=== PATIENT | female | born 1950 | race Caucasian/White ===

== ENCOUNTER → 2020-12-24 | Outpatient (CLI) | payer OTHER ==
[~2020-12-24] MED LIST: NOHOMEMEDICATIONS; PERCOCET 5-3251 EACH PO
== END ==
LOC: SJCVC 13:09
PROVIDERS: ATTEND Internal Medicine Cardiovascular Disease
DX: R94.31 Abnormal electrocardiogram [ECG] [EKG] (principal); R01.1 Cardiac murmur, unspecified; E78.00 Pure hypercholesterolemia, unspecified; E78.5 Hyperlipidemia, unspecified; Z86.79 Personal history of other diseases of the circulatory system; Z79.899 Other long term (current) drug therapy; Z85.3 Personal history of malignant neoplasm of breast; Z72.89 Other problems related to lifestyle

== ENCOUNTER → 2021-01-22 | Outpatient (CLI) | payer OTHER | LOC: SJCVCIMAG 07:27 | PROVIDERS: ATTEND Internal Medicine Cardiovascular Disease | DX: I08.1 Rheumatic disorders of both mitral and tricuspid valves (principal); I25.9 Chronic ischemic heart disease, unspecified; R94.31 Abnormal electrocardiogram [ECG] [EKG]; E78.00 Pure hypercholesterolemia, unspecified; E78.5 Hyperlipidemia, unspecified; I49.3 Ventricular premature depolarization; Z72.89 Other problems related to lifestyle; Z79.899 Other long term (current) drug therapy ==

== ENCOUNTER → 2021-01-29 | Outpatient (CLI) | payer OTHER ==
[~2021-01-29] VITALS: Ht 170.2 cm; Wt 87.5 kg
[~2021-01-29] MED LIST changes: +CALCIUM GLUCON500 GM PO; +CHILDREN'S ASPI81 M1 PO; +FEMARA2.5 MG PO; +LORATIDINE 10 M10 M1 PO; +VITAMIN B-121000 MC2 PO; +VITAMIN D310 MC2 PO
[2021-01-29 07:53] VITALS: BP 185/111
--- NOTE | 2021-01-29 09:55 | EKG ---
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
--- NOTE | 2021-01-29 12:46 | CATHLAB ---
[facility] [place] [address] INVASIVE PROCEDURE REPORT Name: PURNIMA ELIZALDE Room #: REG [facility]#: [id number] Admission: 01/29/21 Attend Phys: Chriss Christianson MD Discharge: Date of : 52 Report #: [id number] THIS REPORT FOR: cc: Rigoberto Morelos Alan Z. DO Park, Jin S. MD ~ APPROVED REPORT Study performed: 01/29/2021 08:13:32 Patient Details Patient Status: Out-Patient Room #: The patient is a 71 year-old female Event Personnel Chriss Christianson Friction Paint Machine Tender, Parul Argueta RTR Monitor, Hang Brand RTR ScrubTho Jessica RN drag sawyer Performed Art Access - R femoral artery* Left Heart Cath w/or w/o Coronaries [id number] [facility] Hemostasis with Manual pressure 46001 Initial Mod Sed Same Phys/QHP Gr5y [id number] 54942 Mod Sed Same Phys/QHP Ea 914226 Indication Arrhythmia, Dyspnea, Positive stress test Risk Factors HypercholesterolemiaPhysical Activity, Hypertension Procedure Narrative The Right Groin^ was infiltrated with 1% Lidocaine subcutaneous anesthesia. A PINNACLE 4FR Sheath #[id number] sheath was inserted into the RFA^. Coronary angiography was performed using coronary diagnostic catheters. The right coronary system was accessed and visualized with a JR4 catheter. The left coronary system was accessed and visualized with a JL4 catheter. Hemostasis was obtained with manual pressure following sheath removal without any complications. The patient tolerated the procedure well and there were no complications associated with the procedure. There was no hematoma. Intraoperative Conscious Sedation Sedation start time: 8:56 Case end Time: [facility] [address] [place] [address] INVASIVE PROCEDURE REPORT Name: PURNIMA ELIZALDE Room #: REG [facility]#: [id number] Admission: 01/29/21 Attend Phys: Chriss Christianson MD Discharge: Date of : 52 Report #: [id number] 9:26 Fentanyl 100 mcg Versed 1.5 mg Fluoro Time: 1.80 minutes Dose: DAP 3389.40 cGycm2 497 mGy Contrast Type and Amount: Omnipaque 45 ml Coronary Angiography The patient's coronary anatomy is right dominant. Diagnostic Cath Left Main The left main artery is a large-caliber vessel, appears angiographically normal. LAD The LAD is a moderate-sized caliber vessel, traverses the anterior wall and wraps around the apex. The LAD appears angiographically normal, with minimal luminal irregularities in the midsegment. Diagonal 1 There is a moderate-sized caliber vessel, divides into 2 branches. This vessel is patent with no flow-limiting lesions. Circumflex The left circumflex artery is a moderate-sized caliber vessel, patent with no flow-limiting lesions. OM1 There is a moderate-sized caliber vessel, patent with no flow-limiting lesions. This vessel divides into 2 branches. OM2 This is a small to moderate-sized caliber vessel, patent with no flow-limiting lesions. Right Coronary The RCA is a moderate-sized caliber vessel, patent with no flow-limiting lesions. R PDA This is a small to moderate-sized caliber vessel, patent with no flow-limiting lesions. RPLV This is a small to moderate-sized caliber vessel, patent with no flow-limiting lesions. Ramus This is a small to moderate-sized caliber vessel, patent with no flow-limiting lesions. Left Ventriculography Left Ventriculography was not performed. Ejection Fraction was 50-55% based off patient's Echocardiogram. An LVEDP was measured and there is no gradient across the outflow tract. Hemodynamics The aortic pressure is 202/111 mmHg with a mean of 80 mmHg. The left ventricular pressure is 196/11 mmHg with a mean of mmHg. The left ventricular end diastolic pressure is 26 mmHg. [facility] [address] [place] [address] INVASIVE PROCEDURE REPORT Name: AIRAM ELIZALDEJOIE Lindsay Room #: REG [facility]#: [id number] Admission: 01/29/21 Attend Phys: Chriss Christianson MD Discharge: Date of : 52 Report #: [id number] Conclusion 1. The epicardial vessels appear to be angiographically normal. There may be minimal luminal irregularities in the mid LAD segment. 2. This is a right dominant system. 3. There is preserved LV systolic function. 4. Recommend risk factor management. <ELECTRONICALLY SIGNED> By: Chriss Christianson MD 01/29/215 44 44 Chriss Christianson MD /INF
== END | disposition home or self-care (01) ==
LOC: CATH 06:39
PROVIDERS: ATTEND Internal Medicine Cardiovascular Disease
DX: R94.39 Abnormal result of other cardiovascular function study (principal); I25.10 Atherosclerotic heart disease of native coronary artery without angina pectoris; R06.00 Dyspnea, unspecified; I49.9 Cardiac arrhythmia, unspecified; I10 Essential (primary) hypertension; E78.00 Pure hypercholesterolemia, unspecified; E66.9 Obesity, unspecified; Z98.890 Other specified postprocedural states; Z79.82 Long term (current) use of aspirin; Z79.899 Other long term (current) drug therapy; Z85.3 Personal history of malignant neoplasm of breast; Z82.49 Family history of ischemic heart disease and other diseases of the circulatory system